=== PATIENT | male | born 1990 | race African-American/Black ===

== ENCOUNTER 2019-06-30 19:12 | Emergency (ER) | payer SELFPAY ==
[2019-06-30] MEDS ORDERED: DICL50TA4 PO (19:27)
[2019-06-30] MEDS ORDERED: CYCL5TAB PO (19:27)
[2019-06-30] MEDS ORDERED: KETOROLAC 30 MG/ML VIAL. ONE (19:56)
[2019-06-30] MEDS ORDERED: KETOROLAC 60 MG/2 ML VIAL. IM ONE (20:00)
[2019-06-30] MEDS ORDERED: KETOROLAC 30 MG/ML VIAL. IM ONE (20:00)
[2019-06-30 20:33] VITALS: BP 140/98
--- NOTE | 2019-06-30 20:45 | PHYS DOC ---
Past History Past Medical History: No Pertinent History Past Surgical History: No Surgical History Alcohol Use: None Drug Use: None Adult General Chief Complaint Chief Complaint: BACK PAIN OR INJURY HPI HPI Patient is a 28 yo m t f transgener not on any meds and which is complaining of back pain and increasing pain while doing errands today patient was bending over to pick something up felt a pop increasing pain right side low back. Sharp nonradiating no bowel or bladder incontinence no numbness tingling or weakness the pain radiates to the upper buttock only Review of Systems Review of Systems Constitutional: Denies fever or chills [] Eyes: Denies change in visual acuity, redness, or eye pain [] HENT: Denies nasal congestion or sore throat [] Respiratory: Denies cough or shortness of breath [] Cardiovascular: No additional information not addressed in HPI [] GI: Denies abdominal pain, nausea, vomiting, bloody stools or diarrhea [] All other systems were reviewed and found to be within normal limits, except as documented in this note. Current Medications Current Medications Current Medications Medications (Trade) Dose Ordered Sig/Alexandre Start Time Stop Time Status Last Admin Dose Admin Ketorolac Tromethamine (Toradol 30mg Vial) 30 mg 1X ONCE 06/30/19 20:00 06/30/19 20:01 DC 06/30/19 20:04 30 MG Ketorolac Tromethamine (Toradol Im) 30 mg 1X ONCE 06/30/19 20:00 06/30/19 20:01 DC Lorazepam (Ativan Inj) 2 mg 1X ONCE 06/30/19 20:00 06/30/19 20:01 DC 06/30/19 20:04 2 MG Allergies Allergies Allergies Coded Allergies Type Severity Reaction Last Updated Verified No Known Drug Allergies 06/30/19 No Physical Exam Physical Exam Constitutional: Well developed, well nourished, no acute distress, non-toxic appearance. [] HENT: Normocephalic, atraumatic, bilateral external ears normal, oropharynx moist, no oral exudates, nose normal. [] Eyes: PERRLA, EOMI, conjunctiva normal, no discharge. [] Abdomen: Bowel sounds normal, soft, no tenderness, no masses, no pulsatile masses. [] Skin: Warm, dry, no erythema, no rash. [] Back: Paraspinous tenderness on the right with palpable spasm no focal midline tenderness Extremities: No tenderness, no cyanosis, no clubbing, ROM intact, no edema. [] Neurologic: Alert and oriented X 3, normal motor function, normal sensory function, no focal deficits noted. [] Psychologic: Affect normal, judgement normal, mood normal. [] Current Patient Data Vital Signs Vital Signs Date Time Temp Pulse Resp B/P (MAP) Pulse Ox O2 Delivery O2 Flow Rate FiO2 06/30/19 19:58 68 18 100 Room Air Lab Results * 137 mm Hg (100-140) Blood Pressure Diastolic * 63 mm Hg (60-100) Blood Pressure Mean * 87 mm Hg Blood Pressure Location * Right Arm Blood Pressure Source * Automatic Cuff Pulse Rate * 68 beats per minute (60-90) Pulse Assessment Method * Monitor Respiratory Rate * 18 breaths per minute (12-24) Oxygen Delivery Method * Room Air Bedside Pulse Oximetry * 100 % Treatment Prior to Arrival * No Complaint of Pain * Yes EKG EKG [] Radiology/Procedures Radiology/Procedures [] Course & Med Decision Making Course & Med Decision Making Pertinent Labs and Imaging studies reviewed. (See chart for details) []Low back pain very likely muscular no cauda equina signs. Patient was given symptomatic treatment with improvement. Dragon Disclaimer Dragon Disclaimer This electronic medical record was generated, in whole or in part, using a voice recognition dictation system. Departure Departure: Impression: Primary Impression: Low back pain Disposition: 01 HOME, SELF-CARE Condition: STABLE Referrals: PCP,NO (PCP) Patient Instructions: Back Pain, Adult, [id number] Scripts Diclofenac Sodium (DICLOFENAC SODIUM) 50 Mg Tablet. 1 TAB PO BID PRN for PAIN, #20 TAB 0 Refills Prov: RODGER YORK MD 06/30/19 Cyclobenzaprine Hcl (CYCLOBENZAPRINE HCL) 5 Mg Tablet 1 TAB PO TID PRN for PAIN, #30 TAB Prov: RODGER YORK MD 06/30/19 RODGER YORK MD Jun 30, 2019 20:45
== END 2019-06-30 20:38 | disposition home or self-care (01) ==
LOC: ER 19:12
DX: M54.5 Low back pain (principal)
CPT/HCPCS: 96372; 99284; J1885; J2060